=== PATIENT | female | born 1960 | race Caucasian/White ===

== ENCOUNTER 2017-04-01 10:39 | Emergency (ER) | payer MEDICARE ==
[2017-04-01 10:53] VITALS: BP 129/73
--- NOTE | 2017-04-01 11:26 | RAD ---
Indication: RIGHT lower leg pain following injury approximate 30 minutes ago. Comparison: No relevant prior exams available on the [facility] for comparison. Technique: AP and crosstable lateral views RIGHT lower leg. Report: Large suprapatellar RIGHT knee joint effusion with fat fluid level. Subtle vertical lucency extending to the lateral tibial plateau articular surface is concerning for a nondisplaced fracture. Corresponding subtle cortical irregularity evident anteriorly on the lateral view. Normal articular alignment. Mild soft tissue swelling anterior to the knee. IMPRESSION: The constellation of findings is consistent with a grossly nondisplaced lateral tibial plateau fracture with associated large lipohemarthrosis.
[2017-04-01] MEDS ORDERED: oxyCODONE/Acetamin 5/325 MG* TAB PO ONE (11:43)
[2017-04-01] MEDS ORDERED: Ketorolac INJ* 30 MG/ML 1 ML VIAL IM ONE (11:58)
--- NOTE | 2017-04-01 12:48 | RAD ---
INDICATION: Lateral tibial plateau fracture COMPARISON: Right lower extremity April 01, 2017 TECHNIQUE: Axial source images were acquired followed by coronal and sagittal reconstructions FINDINGS: There is a nondisplaced fracture of the lateral tibial plateau which extends to the intercondylar region and anteriorly to involve the proximal anterior tibial cortices both medially and laterally. There are no other focal osseous findings. The near tic which normally. There is a large joint effusion with a fat-fluid level IMPRESSION: PROXIMAL TIBIAL FRACTURE DESCRIBED. LARGE LIPOHEMARTHROSIS
--- NOTE | 2017-04-02 08:27 | ED ---
Rayray Trotter Angela, scribed for Joey Santos MD on 04/01/17 at 1052 . Lower Extremity - HPI Summary HPI Summary: This pt is a 57 y/o female presenting [place] [facility] [place]/o right knee and right leg pain s/p injury today. Pt reports a 60 pound pitbull ran into her knee today. She states she was "knocked down" and fell immediately after impact. Pt notes pain from her right ankle all the way up to her right hip, with most pain on her right knee. Pt is not able to bear weight on her right leg. She has a PMHx of double hip replacement. - History of Current Complaint Stated Complaint: RT LEG/KNEE INJURY Hx Obtained From: Patient Mechanism Of Injury: Direct Blow Onset of Pain: Immediate Onset/Duration: Hours Severity Currently: Severe Pain Intensity: 10 Pain Scale Used: 0-10 Numeric Timing: Constant, Lasting Hours Location: Is Discrete @ - right knee, right leg Associated Signs And Symptoms: Positive: Swelling, Knee Pain - right. Negative : Abdominal Pain Able to Bear Weight: No - Allergies/Home Medications Allergies/Adverse Reactions: Allergies Allergy/AdvReac Type Severity Reaction Status Date / Time Diphenhydramine Allergy Unknown See Comment Verified 07/18/14 09:29 [From Benadryl] opioids Allergy Vomiting Uncoded 07/18/14 06:24 PMH/Surg Hx/FS Hx/Imm Hx Respiratory History: Reports: Hx Asthma - HX OF A CHILD, TRIGGERED BY ENVIROMENTAL, Hx Seasonal Allergies Musculoskeletal History: Reports: Hx Arthritis - OSTEOARTHRITIS BILATERAL HIP, Hx Back Problems Sensory History: Denies: Hx Contacts or Glasses, Hx Hearing Aid Opthamlomology History: Denies: Hx Contacts or Glasses Neurological History: Reports: Other Neuro Impairments/Disorders - BIPOLAR - NO MEDS Psychiatric History: Reports: Hx Bipolar Disorder - not on meds - Surgical History Surgery Procedure, Year, and Place: 07/2013 [place] [facility] Anesthesia Reactions: No Infectious Disease History: Reports: Hx Hepatitis - NON VIRAL A - 1982 - Family History Known Family History: Positive: Respiratory Disease - Asthma - mother - Social History Alcohol Use: None Hx Substance Use: Yes Substance Use Type: Reports: Marijuana Substance Use Comment - Amount & Last Used: daily Hx Tobacco Use: Yes Smoking Status (MU): Current Every Day Smoker Type: Cigarettes, Cigars Amount Used/How Often: 1/2-1 PPD Length of Time of Smoking/Using Tobacco: 25 YEARS Have You Smoked in the Last Year: Yes Review of Systems Negative: Fever, Chills Eyes: Negative Cardiovascular: Negative Respiratory: Negative Gastrointestinal: Negative Genitourinary: Negative Musculoskeletal: Other - right knee pain, right leg pain Skin: Negative Neurological: Negative All Other Systems Reviewed And Are Negative: Yes Physical Exam - Summary Physical Exam Summary: VITAL SIGNS: Reviewed. GENERAL: Patient is a well-developed and nourished female. HEAD AND FACE: No signs of trauma. No ecchymosis, hematomas or skull depressions. No sinus tenderness. EYES: PERRLA, EOMI x 2, No injected conjunctiva, no nystagmus. EARS: Hearing grossly intact. Ear canals and tympanic membranes are within normal limits. MOUTH: Oropharynx within normal limits. NECK: Supple, trachea is midline, no adenopathy, no JVD, no carotid bruit, no c- spine tenderness, neck with full ROM. CHEST: Symmetric, no tenderness at palpation LUNGS: Clear to auscultation bilaterally. No wheezing or crackles. CVS: Regular rate and rhythm, S1 and S2 present, no murmurs or gallops appreciated. ABDOMEN: Soft, non-tender. No signs of distention. No rebound no guarding, and no masses palpated. Bowel sounds are normal. EXTREMITIES: no cyanosis or clubbing. There is a little swelling on the right knee. No deformity. Good capillary refill and good pulses. Decreased ROM secondary to pain. NEURO: Alert and oriented x 3. No acute neurological deficits. Speech is normal and follows commands. SKIN: Dry and warm Triage Information Reviewed: Yes Vital Signs On Initial Exam: Initial Vitals Temp Pulse Resp BP Pulse Ox 97.6 F 66 20 129/73 98 04/01/17 10:40 04/01/17 10:40 04/01/17 10:40 04/01/17 10:40 04/01/17 10:40 Vital Signs Reviewed: Yes Diagnostics - Vital Signs Vital Signs Temp Pulse Resp BP Pulse Ox 04/01/17 10:40 97.6 F 66 20 129/73 98 - Laboratory Lab Statement: Any lab studies that have been ordered have been reviewed, and results considered in the medical decision making process. - Radiology Right lower leg XR Xray Interpretation: Positive (See Comments) - IMPRESSION: The constellation of finding is consistent with a grossly nondisplaced lateral tibial plateau fracture with associated large lipohemarthrosis. ED physician has reviewed this radiology report and agrees. Radiology Interpretation Completed By: Radiologist - CT Right lower extremity CT CT Interpretation: Positive (See Comments) - IMPRESSION: Proximal tibial fracture as described. Large lipohemarthrosis. ED physician has reviewed this radiology report and agrees. CT Interpretation Completed By: Radiologist Re-Evaluation - Re-Evaluation First Eval Re-Evaluation Time: 13:14 Comment: I discussed the XR and CT results with the pt. Lower Extremity Course/Dx - Course Assessment/Plan: This pt is a 57 y/o female presenting to [facility] c/o right knee and right leg pain s/p injury today. Pt reports a 60 pound pitbull ran into her knee today. She states she was "knocked down" and fell immediately after impact. Pt notes pain from her right ankle all the way up to her right hip, with most pain on her right knee. Pt is not able to bear weight on her right leg. She has a PMHx of double hip replacement. Right lower leg XR shows the constellation of finding is consistent with a grossly nondisplaced lateral tibial plateau fracture with associated large lipohemarthrosis. The pt has a right tibial plateau fracture. I discussed the pts case with Dr. Henao and he recommends a CT. Right lower leg CT shows proximal tibial fracture as described. Large lipohemarthrosis. After Dr. Henao reviewed the CT, he recommends for the pt to be discharged home with a knee immobilizer and crutches. Pt declined opioids and only requested Toradol. Therefore, the pt will be discharged home with follow up with Dr. Henao. Pt is ambulating with crutches out of the ER. - Diagnoses Differential Diagnosis/HQI/PQRI: Positive: Bursitis, Cellulitis, Contusion, Dislocation, Fracture (Closed), Sprain, Strain Provider Diagnoses: Closed fracture of lateral portion of right tibial plateau - Physician Notifications Discussed Care Of Patient With: Nav Henao Time Discussed With Above Provider: 11:52 Instructed by Provider To: Other - I discussed pt care with Dr. Henao, who recommends to do a CT scan. [13:07] Dr. Henao reports that the pt can be discharged and follow up with him in his office. Discharge - Discharge Plan Condition: Stable Disposition: HOME Patient Education Materials: Leg Fracture (ED) Referrals: Juanito Cardoso MD [Medical Doctor] - Nav Henao MD [Medical Doctor] - Additional Instructions: Please follow up with Dr. Henao, orthopedist. RETURN TO THE ED FOR ANY WORSENING OR NEW SYMPTOMS. The documentation as recorded by the Rayray dykes Angela accurately reflects the service I personally performed and the decisions made by , Joey Santos MD.
== END 2017-04-01 13:52 | disposition home or self-care (01) ==
LOC: ED 10:39
DX: S82.144A Nondisplaced bicondylar fracture of right tibia, initial encounter for closed fracture (principal); W54.1XXA Struck by dog, initial encounter; Y93.9 Activity, unspecified; Y92.9 Unspecified place or not applicable
CPT/HCPCS: 99282; J1885